=== PATIENT | female | born 1940 | race Caucasian/White ===

== ENCOUNTER → 2017-01-18 | Outpatient (CLI) | payer OTHER, MEDICARE ==
--- NOTE | ~2017-01-18 | 2DMMODE ---
[facility] [place] [address] 2 D/M-MODE ECHOCARDIOGRAM Name: PRATIKLORRIE Finn Room #: REG CL [facility]#: [id number] Admission: 01/18/17 Attend Phys: Roddy Hoffman, Discharge: Date of : 40 Date of Service: 01/18/17 1458 Report #: [id number] THIS REPORT FOR: //name// APPROVED REPORT Study performed: 01/18/2017 13:04:35 EXAM: Comprehensive 2D, Doppler, and color-flow Echocardiogram Patient Location: Out-Patient Blood Pressure: 134/69 mmHg HR: 71 bpm Rhythm: NSR Other Information Study Quality: Adequate Technically limited study due to breast implants. Indications Pulmonary Hypertension Hx: COPD, HTN, HLP 2D Dimensions RVDd: 38.09 mm LVEF(%): 80.74 (>50%) IVSd: 11.44 (7-11mm) LVOT Diam: 20.09 (18-24mm) LVDd: 45.32 mm PWd: 9.51 (7-11mm) Ascending Ao: 32.22 (22-36mm) LVDs: 22.99 (25-40mm) Aortic Root: 32.50 mm Ashby's LVEF: 80.74 % Volumes Left Atrial Volume (Systole) Single Plane 4CH: 47.08 mL Single Plane 2CH: 44.49 mL LA ESV Index: 28.00 mL/m2 Aortic Valve AoV Peak Mark.: 1.50 m/s AO Peak Gr.: 9.08 mmHg LVOT Max P.11 mmHg LVOT Max V: 1.13 m/s Mitral Valve [facility] [address] [address] 2 D/M-MODE ECHOCARDIOGRAM Name: LORRIE CHRISTIE Room #: REG [facility]#: [id number] Admission: 01/18/17 Attend Phys: Roddy Hoffman, Discharge: Date of : 40 Date of Service: 01/18/17 1458 Report #: [id number] E/A Ratio: 0.8 MV Decel. Time: 221.75 ms MV E Max Mark.: 0.77 m/s MV A Mark.: 0.98 m/s MV PHT: 64.31 ms Pulmonary Valve PV Peak Mark.: 0.93 m/s PV Peak Gr.: 3.46 mmHg Pulmonary Vein P Vein S: 50.4 m/s P Vein D: 31.6 m/s P Vein A Dur.: 39.7 m/s Tricuspid Valve TR Peak Mark.: 3.31 m/s RAP Estimate: 5.00 mmHg TR Peak Gr.: 43.79 mmHg RVSP: 49.00 mmHg Left Ventricle The left ventricle is normal size. There is normal LV segmental wall motion. There is normal left ventricular wall thickness. Left ventricular systolic function is normal. LVEF is 60%. Grade I - abnormal relaxation pattern. Right Ventricle The right ventricle is normal size. The right ventricular systolic function is normal. Atria The left atrium size is normal. The right atrium size is normal. Aortic Valve Aortic valve is calcified. No aortic regurgitation is present. There is no aortic valvular stenosis. Mitral Valve Mild mitral annular calcification. Mitral valve leaflets are mildly thickened. Trace mitral regurgitation. No significant mitral valve stenosis. Tricuspid Valve The tricuspid valve is normal in structure. There is moderate tricuspid regurgitation. The right atrial pressure is estimated at 5 mmHg. There is moderate pulmonary hypertension with an estimated PAP of 49mmHg. [facility] [place] [place] [address] 2 D/M-MODE ECHOCARDIOGRAM Name: LORRIE CHRISTIE Room #: REG [facility]#: [id number] Admission: 01/18/17 Attend Phys: Roddy Hoffman, Discharge: Date of : 40 Date of Service: 01/18/17 1458 Report #: [id number] Pulmonic Valve The pulmonary valve is normal in structure. Trace pulmonic regurgitation. Great Vessels The aortic root is normal in size. The ascending aorta is normal in size. IVC is normal in size and collapses >50% with inspiration. Pericardium There is no pericardial effusion. <Conclusion> The left ventricle is normal size. LVEF is 60%. Aortic valve is calcified. There is no aortic valvular stenosis. No aortic regurgitation is present. Mild mitral annular calcification. Mitral valve leaflets are mildly thickened. Trace mitral regurgitation. No significant mitral valve stenosis. The tricuspid valve is normal in structure. There is moderate tricuspid regurgitation. The right atrial pressure is estimated at 5 mmHg. There is moderate pulmonary hypertension with an estimated PAP of 49mmHg. <ELECTRONICALLY SIGNED> By: Agapito Pete MD 01/18/17 1458 1458 1458 Agapito Pete MD /INF
== END ==
LOC: CV 08:33
DX: I27.2 Other secondary pulmonary hypertension (principal)

== ENCOUNTER 2017-02-27 05:29 | Day surgery (SDC) | payer OTHER, MEDICARE ==
[~2017-02-27] VITALS: Ht 165.1 cm; Wt 72.6 kg
--- NOTE | ~2017-02-27 | S ---
[facility] [place] [address] SURGICAL PATH RPT PROCEDURE Name: LORRIE PEREZ Room #: DEP [facility] M.R.#: [id number] Admission: 02/27/17 Date of : 40 Discharge: 02/27/17 Report #: [id number] Path Case #: [id number] PATHOLOGY REPORT COLLECTION DATE: 02/27/2017 RECEIVED DATE: 02/27/2017 SUBMITTING PHYS: Dr. Raman Lam OTHER PHYS: Dr. Chanel Hoffman SPECIMEN(S) RECEIVED: A.Biopsy MARISELA * * * * * * * * * * * * FINAL DIAGNOSIS: Lung, left upper lung, forceps biopsy: - SCANT DETACHED MALIGNANT EPITHELIAL CELLS PRESENT, COMPATIBLE WITH ADENOCARCINOMA (PLEASE SEE COMMENT). - Ninety-nine percent of the sample is comprised of benign alveolated lung parenchyma along with benign bronchial epithelium. COMMENT: Examination shows scant malignant epithelial cells with high nuclear to cytoplasmic ratio, gland formation, as well as focal mucin production. These cells appear similar to the ones noted on bronchial brushings ([id number], part C, please see separate report). Immunohistochemical stains are performed to further characterize the neoplasm. (Block A). TTF-1 Strong reactivity identified within the scant tumor cells. P40 non-reactive within the scant tumor cells. The immunohistochemical stains support the rendered diagnosis. Co-Review: Dr. Jared Killian. (IUV:mml; d/t: 03/01/2017) PATHOLOGIST: Lizy Sadler M.D. REPORT ELECTRONICALLY SIGNED BY: Lizy Sadler M.D. DATE/TIME: 03/01/2017 17:05 * * * * * * * * * * * * GROSS PATHOLOGY: The specimen is received in formalin, labeled "Lorrie Perez, left upper lung biopsy forceps." Received are multiple fragments of light moses to red-brown, friable soft tissue measuring 1.4 x 0.5 x 0.2 cm in aggregate dimensions. The specimen is filtered and submitted entirely in cassette A1. [address] [address] SURGICAL PATH RPT PROCEDURE Name: LORRIE PEREZ Room #: [facility]..#: [id number] Admission: 02/27/17 Date of : 40 Discharge: 02/27/17 Report #: [id number] Path Case #: [id number] (KAH; 02/28/2017) CLINICAL HISTORY: Endobronchial ultrasound, shortness of breath INITIAL CPT CODE(S): A; 55116, 00981, 67286 Professional services performed by [facility] at [address], [place] [address] Technical services performed by [facility] at [address] [place] [address], [facility] [address] [address]. [facility] [address] [place] [address] PHONE: [phone] DIRECTOR: Quang W. Sheron, M.D. * * * END OF REPORT * * *
--- NOTE | ~2017-02-27 | P ---
[facility] [place] [address] PROCEDURE REPORT Name: LORRIE CHRISTIE Room #: 150-4 [facility]#: [id number] Admission: 02/27/17 Attend Phys: Raman Lam MD Discharge: Date of : 40 Report #: [id number] THIS REPORT FOR: //name// CC: Raman Hoffman MD DATE OF SERVICE: 02/27/2017 PROCEDURE: Fiberoptic bronchoscopy under general endotracheal anesthesia with left upper lobe forceps and brush biopsies along with washings as well as endobronchial ultrasound-guided fine needle aspirates of 11 L and 4 L lymph nodes. INDICATION: Lung mass with some mediastinal adenopathy. PROCEDURE NOTATION: After discussing risks, benefits of planned procedure with the patient, she desired to proceed. After obtaining informed consent, she was brought to the OR room 1 where she was placed on general endotracheal anesthesia by the anesthesia service. Once complete, a standard white light bronchoscope was advanced through the 8.0 endotracheal tube and the airways were surveyed. FINDINGS: Mainstem, lobar, segmental and subsegmental bronchi were explored and appeared patent. No significant anatomic variation. There was significant disease in the left upper lobe, both in the apical posterior and anterior segments, more predominantly apical posterior and the left upper lobe bronchus that joins the LB 1 to LB 3. This was sampled using cytologic brushings and several forceps biopsies. Washings of this area were also obtained and sent for cytology. The white light bronchoscope was then removed and endobronchial ultrasound was then inserted in usual fashion. The main lymph node stations were assessed. Findings included 11R lymph node, 5 mm. No significant 10R lymph nodes seen. 4R, 3 mm. 4L, 6 mm. 11L, 8 mm. 7 was 5 mm. Five fine needle aspirate using endobronchial ultrasound guidance were obtained with a 25-gauge needle on the 11L location. This was sent for rapid onsite pathology, which was inconclusive as well as tissue specimens were sent in formalin. Three passes were made with a 25-gauge needle in the 4L position. Again, this was sent for histopathology in formalin as well as one rapid onsite pathology is pending at the time of this dictation. The patient tolerated well with no noted complications. Less than 20 mL of blood loss. IMPRESSION: Lung mass, status post bronchoscopy with specimen collection as above. [address] [address] PROCEDURE REPORT Name: LORRIE CHRISTIE Room #: 150-4 [facility] Jenny#: [id number] Admission: 02/27/17 Attend Phys: Raman Lam MD Discharge: Date of : 40 Report #: [id number] PLAN: Await pathologic studies. <ELECTRONICALLY SIGNED> By: Raman Lam MD 02/28/17 1133 0945 2038 Raman Lam MD /nt
--- NOTE | ~2017-02-27 | CNG ---
[facility] [place] [address] CYTO-NONGYN REPORT PROCEDURE Name: LORRIE PEREZ Room #: 150-4 [facility].#: [id number] Admission: 02/27/17 Date of : 40 Discharge: Report #: [id number] Path Case #: [id number] CYTOPATHOLOGY REPORT COLLECTION DATE: 02/27/2017 RECEIVED DATE: 02/27/2017 SUBMITTING PHYS: Dr. Raman Lam OTHER PHYS: Dr. Chanel Perez CLINICAL HISTORY: Lung Mass; see also [id number] PROCEDURE: A. One pass performed by Dr. Lam yielding fluid. Two H and E slides, and 45 mL from needle rinsed in formalin were submitted to the lab. B. One pass performed by Dr. Lam yielding fluid. Two H and E slides, and 13 mL from needle rinsed in formalin were submitted to the lab. SPECIMEN(S) RECEIVED: A.EBUS guided Fine needle aspiration, lymph node 11L Pass 1-5 B.EBUS guided TBNA, lymph node 4L Pass 1-3 C.Bronchial brushing, MARISELA D.Bronchial brush rinse, MARISELA E.Bronchoalveolar lavage, MARISELA * * * * * * * * * * * * FINAL DIAGNOSIS: A. Specimen desiganated as lymph node 11L Pass 1-5, EBUS guided Fine needle aspiration: No malignant cells identified. Bronchial cells and blood B. Specimen desiganated as lymph node 4L Pass 1-3, EBUS guided Fine needle aspiration: - No malignant cells identified. Bronchial cells, cartilage, rare lymphocytes and blood. C. Lung, MARISELA, Bronchial brushing: MALIGNANT CELLS IDENTIFIED MOST CONSISTENT WITH NON-SMALL CELL CARCINOMA. D. Lung, MARISELA, Bronchial brush rinse: FEW MALIGNANT CELLS IDENTIFIED CONSISTENT WITH NON-SMALL CELL CARCINOMA. E. Lung, MARISELA, Bronchoalveolar lavage: FEW MALIGNANT CELLS IDENTIFIED CONSISTENT WITH NON-SMALL CELL CARCINOMA. . COMMENT: [place]: Dr. Magalie Killian. Findings are discussed with Dr. Raman Lam at 1:02 PM on 02/28/17. The concurrent biopsy [id number] is pending at the time of this [address] [address] CYTO-NONGYN REPORT PROCEDURE Name: LORRIE PEREZ Room #: 150-4 [facility] Jenny#: [id number] Admission: 02/27/17 Date of : 40 Discharge: Report #: [id number] Path Case #: [id number] report. PATHOLOGIST: Lizy Sadler M.D. REPORT ELECTRONICALLY SIGNED BY: Lizy Sadler M.D. DATE/TIME: 02/28/2017 13:44 * * * * * * * * * * * * GROSS PATHOLOGY: A. EBUS guided Fine needle aspiration, lymph node 11L Pass 1-5: The specimen is labeled "Lorrie Perez" and consists of two H and E slides. Forty-five mL of cloudy dark red fluid in formalin from the needle rinse is also submitted and a cell block only was prepared from this material. B. EBUS guided TBNA, lymph node 4L Pass 1-3: The specimen is labeled "Lorrie Perez R" and consists of two H and E slides. Thirteen mL of cloudy red fluid in formalin from the needle rinse is also submitted and a cell block only was prepared from this material. C. Bronchial brushing, MARISELA: The specimen is labeled "Lorrie Perez R" and consists of six fixed slides. D. Bronchial brush rinse, MARISELA: The specimen is labeled "Lorrie Perez R" and consists of a brush tip in fixative. One ThinPrep slide was prepared. E. Bronchoalveolar lavage, MARISELA: The specimen is submitted unfixed, labeled "Lorrie Perez". Received by the Cytology Department is 13 mL of red fluid. One ThinPrep slide was prepared. (mm 6.) IMMEDIATE EVALUATION: A. Lymph node 11L: Per Dr. Sadler: Pass 1 blood only. B. Lymph node 4L: Per Dr. Sadler: Bronchial epithelial cells and blood. Professional services performed under supervision of [facility] Decision Support Manager at [address] [place], [place] [address], [place] [address]. DITCHER(S): BRANDEE Samuel([facility]), [facility] INITIAL CPT CODE(S): A; 03654, 95228, 00839 B; 88169, 78485, 89038 C; 84613 D; 20256 E; 23694 Professional services performed by [facility] at [address] , [place] [address] Technical services performed by [facility] at [address] [place] [address] CYTO-NONGYN REPORT PROCEDURE Name: LORRIE PEREZ Room #: 150-4 [facility]Sabrina#: [id number] Admission: 02/27/17 Date of : 40 Discharge: Report #: [id number] Path Case #: [id number] [facility] [address] [address]. [facility] [address] [facility] [address] [place] [address] PHONE: [phone] DIRECTOR: Quang Holbrook M.D. * * * END OF REPORT * * *
--- NOTE | ~2017-02-27 | EKG ---
[address] [address] ELECTROCARDIOGRAM REPORT Name: MARGARITO CHRISTIEBARBARA Briseno Room #: 150-4 [facility]#: [id number] Admission: 02/27/17 Attend Phys: Raman Lam MD Discharge: Date of : 40 Report #: [id number] THIS REPORT FOR: //name// [facility] Test Date: 2017-02-27 Test Time: 06:55:23 Pat Name: LORRIE CHRISTIE Department: Room: 150 4 Gender: F Driver Engineer: ALEXA : 1940 Requested By: Kaz Holguin Order Number: [id number] MD: Mejia Kerns Measurements Intervals [place] Rate: 54 P: 64 IL: 174 QRS: -22 QRSD: 116 T: 12 QT: 469 QTc: 445 Interpretive Statements Sinus bradycardia Probable left atrial enlargement Incomplete right bundle branch block No previous ECG available for comparison Electronically Signed On 02-28-2017 8:08:41 CDT by Mejia Kerns [email or web address] <ELECTRONICALLY SIGNED> By: Mejia Kerns MD, [facility] 02/28/17 0808 0655 4 Mejia Kerns MD, FACC /EPI
[~2017-02-27 05:29] MED LIST: ADVAIR 250-501 EACH INH; AMBIEN 5 MG TABL5 M1 PO; ASPIR 8181 MG PO; CITALOPRAM HBR40 MG PO; CLONIDINE HCL0.1 MG PO; GLUCOSAMINE CH1 EAC7 PO; HYTRIN 2MG CAPSU2 M1 PO; LISINOPRIL-HCT1 EAC1 PO; METOPROLOL SUCC50 MG PO; OMEPRAZOLE 20 M20 M1 PO; PRAMIPEXOLE D0.75 MG PO; SPIRIVA RESPIMAT4 GM INH; WELLBUTRIN SR150 MG PO; ZOCOR20 MG PO
[2017-02-27 07:00] VITALS: BP 113/61
[2017-02-27 07:34] LABS: CREATININE 1.1 mg/dL (0.6-1.0); POTASSIUM 3.7 mmol/L (3.5-5.1)
== END 2017-02-27 11:20 | disposition home or self-care (01) ==
LOC: TBA 05:29 → OR 05:29
PROVIDERS: Anesthesiology
DX: C34.12 Malignant neoplasm of upper lobe, left bronchus or lung (principal); I10 Essential (primary) hypertension; J44.9 Chronic obstructive pulmonary disease, unspecified; E78.00 Pure hypercholesterolemia, unspecified; G47.33 Obstructive sleep apnea (adult) (pediatric); K21.9 Gastro-esophageal reflux disease without esophagitis; F32.89 Other specified depressive episodes; Z87.891 Personal history of nicotine dependence; Z98.41 Cataract extraction status, right eye; Z98.42 Cataract extraction status, left eye; Z96.1 Presence of intraocular lens; Z98.890 Other specified postprocedural states; Z79.899 Other long term (current) drug therapy
CPT/HCPCS: 62110; 62900; 70005

== ENCOUNTER → 2017-03-22 | Outpatient (CLI) | payer OTHER, MEDICARE ==
[2017-03-22] VITALS (9 sets, daily range): BP systolic 120–184; BP diastolic 57–89
[~2017-03-22] VITALS: Ht 160 cm; Wt 70.3 kg
[~2017-03-22] MED LIST changes: +IBUPROFEN 200200 M1 PO
--- NOTE | ~2017-03-22 | S ---
[facility] [place] [address] SURGICAL PATH RPT PROCEDURE Name: LORRIE PEREZ Room #: REG [facility]#: [id number] Admission: 03/22/17 Date of : 40 Discharge: Report #: [id number] Path Case #: [id number] PATHOLOGY REPORT COLLECTION DATE: 03/22/2017 RECEIVED DATE: 03/22/2017 SUBMITTING PHYS: Dr. Mario Bucio OTHER PHYS: Dr. Roddy Perez SPECIMEN(S) RECEIVED: A.Bone marrow, biopsy B.Bone marrow, clot and/or particle prep C.Bone marrow, aspirate smears D.Peripheral smear * * * * * * * * * * * * FINAL DIAGNOSIS: Bone marrow aspirate, biopsy, cell clot, and peripheral blood: - Peripheral blood with mild normocytic to mildly microcytic anemia. - BONE MARROW WITH METASTATIC CARCINOMA. - Bone marrow cell clot with no evidence of metastatic carcinoma. COMMENT: Overall, the decalcified bone marrow core biopsy has metastatic carcinoma, similar to the patient's previously diagnosed left upper lung biopsy showing adenocarcinoma ([id number], [id number]). The tumor cells are only present in the decalcified bone marrow core biopsy. The cell clot shows no evidence of metastatic carcinoma. The amount of tumor cells identified within the decalcified core biopsy is minimal and ancillary testing would be difficult to perform. Mild dyserythropoiesis is present and does not meet the morphologic criteria for myelodysplasia. Only trace stainable iron is identified. Correlation with clinical history, additional laboratory data, radiographic findings, and cytogenetics is recommended. A inside sales account representative slide is co-reviewed with Dr. Lizy Sadler. (CLW:; 03/27/2017) PATHOLOGIST: Magalie Killian M.D. REPORT ELECTRONICALLY SIGNED BY: Magalie Killian M.D. DATE/TIME: 03/27/2017 16:20 * * * * * * * * * * * * MICROSCOPIC DESCRIPTION: CBC Data (03/22/17): WBC 7,000 /uL, RBC 3.94, hemoglobin 10.4 g/dL, hematocrit 32.3%, MCV 82.0 fL, MCH 26.5 pg, MCHC 32.2 g/dL, RDW [address] [address] SURGICAL PATH RPT PROCEDURE Name: LORRIE PEREZ Room #: REG [facility]#: [id number] Admission: 03/22/17 Date of : 40 Discharge: Report #: [id number] Path Case #: [id number] 14.4%, and platelet count 220,000 /uL. Manual white blood cell differential: segs 66%, lymphs 19%, monos 10%, and eos 5%. Peripheral Blood Smear: Cytomorphological examination of the Olivarez's stained peripheral blood smear confirms the provided data. Red blood cells show mild normocytic to mildly microcytic anemia with no significant anisopoikilocytosis. No schistocytes or microspherocytes are seen. White blood cells are predominantly segmented neutrophils and are without significant dyspoiesis or significant left shift. Lymphocytes are predominantly small, round, and mature appearing with condensed chromatin and scant cytoplasm with admixed large granular lymphocytes. Monocytes are mature. Platelets are adequate in number and mainly normal in morphology with rare larger platelets noted. Aspirate Smears: Cytomorphological examination of the Olivarez's stained aspirate smears shows spicules present. The overall cellularity is approximately 50%. The myeloid to erythroid ratio is 2:1. Full myeloid maturation is identified and is without significant dyspoiesis. Erythroid maturation is mildly dyserythropoietic with occasional irregular nuclear contours, basophilic stippling, binucleate forms, and mitotic figures. In a 500 cell differential, there are 1% blasts (no Cristina rods are seen), 60% more differentiated myeloids, 29% erythroid precursors, 9% lymphocytes and 1% plasma cells. Megakaryocytes are proportional in number and both normal and abnormal in morphology with variable sizes and nuclear abnormalities. No lymphoid aggregates or markedly atypical lymphoid cells are seen. Plasma cells are without atypia. Iron stain of the aspirate smear shows only trace stainable iron with spicules present. No ringed sideroblasts are identified. Core Biopsy and Cell Clot: The decalcified bone marrow core biopsy directed at the right ileum lesion shows hypertrophic, fibrotic and sclerotic bone. Background trilineage hematopoiesis is markedly decreased. A small focus of markedly atypical cells within the fibrotic stroma is noted. Focal edema and fresh hemorrhage is also seen. The cell clot shows spicules of hematopoietic progenitor cells that are similar in cellularity and differential morphology as previously described. No metastatic carcinoma is identified within the clot section. Iron stain of the clot section (block B1) shows only trace stainable iron with spicules present. Properly controlled immunohistochemical stains are performed. (Block A1) AE1/AE3: highlights the rare metastatic carcinoma tumor cells TTF-1: highlights the rare metastatic carcinoma tumor cells (Block B1) AE1/AE3: non-reactive TTF-1: non-reactive Flow Cytometry: [address] [address] SURGICAL PATH RPT PROCEDURE Name: LORRIE PEREZ Room #: REG [facility]#: [id number] Admission: 03/22/17 Date of : 40 Discharge: Report #: [id number] Path Case #: [id number] Flow cytometric immunophenotypic analysis was performed at [facility]. The diagnosis is "no diagnostic immunophenotypic abnormalities detected." There are 7.8% lymphocytes. Of the lymphocytes, there are 63% T cells with a CD4/CD8 ratio of 2.2 and no aberrant T cell antigen expression. There are 12% polyclonal B cells (kappa lambda ratio of 1.1). There are 1.3% CD34 positive cells (blasts) and 0.5% precursor B cells. No immunophenotypic evidence of a lymphoproliferative disorder, acute leukemia, increase in blasts, or plasma cell neoplasm is identified. Please see separate flow cytometry report from [facility] ([id number]). Cytogenetics Analysis: Cytogenetic chromosomal analysis is pending at [facility] ([id number]). (CLW:; 03/27/2017) GROSS PATHOLOGY: A. Received in formalin labeled "Lorrie Perez, bone marrow biopsy," are 2 needle cores of moses bone, ranging from 0.7 to 0.8 cm in length and 0.2 cm in diameter. The specimen is submitted entirely in cassette A1, following decalcification. B. Received in formalin labeled "Lorrie Perez, clot-bone marrow aspirate," is blood coagulum, measuring 2.8 x 1.6 x 0.3 cm in aggregate dimensions. The specimen is submitted entirely in cassette B1. (KAH; 03/23/2017) CLINICAL HISTORY: 76 year-old man with anemia and bone lesion. INITIAL CPT CODE(S): A; 35310, 30376, 00141, 35967 B; 16310, 10200, 98797, 67653 C; 85193, 80924 D; 75390 Professional services performed by [facility] at [facility] [address] [facility] [address], [place] [address] Technical services performed by [facility] at [address] [place] [address], [facility] [address] [address]. [facility] [address] [place] [address] PHONE: [phone] [facility] [address] [place] [address] SURGICAL PATH RPT PROCEDURE Name: LORRIE PEREZ Room #: REG [facility] Frankie.#: [id number] Admission: 03/22/17 Date of : 40 Discharge: Report #: [id number] Path Case #: [id number] DIRECTOR: Quang Holbrook M.D. * * * END OF REPORT * * *
[2017-03-22 09:25] LABS: HEMATOCRIT 32.3 % (37.0-47.0); HEMOGLOBIN 10.4 gm/dL (12.0-15.0); MCH 26.5 pg (26.0-34.0); MCHC 32.3 g/dL (28.0-37.0); PLATELET COUNT 220 thou/uL (150-400); RBC 3.94 mil/uL (4.20-5.00); RDW 14.4 % (10.5-14.5)
[2017-03-22 09:37] LABS: CALCIUM 9.2 mg/dL (8.5-10.1); CREATININE 1.1 mg/dL (0.6-1.0); POTASSIUM 4.1 mmol/L (3.5-5.1)
[2017-03-22 09:38] LABS: APTT 27.8 Seconds (24.5-32.8); PROTIME 10.7 Seconds (9.3-11.4)
[2017-03-22 11:30] LABS: MANUAL DIFF YES
[2017-03-22 13:33] LABS: ABSOLUTE NEUTROPHILS 4.6 thou/uL (1.4-8.2); ANISOCYTOSIS SLIGHT; TOTAL CELL COUNT 100
[2017-03-22 13:34] LABS: MICROCYTES FEW; OVALOCYTES FEW
== END | disposition home or self-care (01) ==
LOC: CAT 08:09
PROVIDERS: Radiology Vascular & Interventional Radiology
DX: C79.52 Secondary malignant neoplasm of bone marrow (principal); D50.9 Iron deficiency anemia, unspecified